=== PATIENT | male | born 1995 | race Hispanic/Latino ===

== ENCOUNTER 2025-03-18 11:05 | Emergency (ER) | payer OTHER ==
[~2025-03-18] VITALS: Ht 177.8 cm; Wt 81.4 kg
[2025-03-18] MEDS ORDERED: SUBOXONE 8 MG-1 EAC1 SL (11:25)
[2025-03-18] MEDS ORDERED: SODIUM CHLORIDE 0.9% 1,000 ML IV PRN (11:30)
[2025-03-18 11:52] LABS: BLOOD/HGB, URINE NEGATIVE (Negative); KETONE, URINE TRACE (Negative); LEUK ESTERASE, URINE NEGATIVE (negative); NITRITE, URINE NEGATIVE (negative)
[2025-03-18 11:59] LABS: BASOPHILS 0.2 % (0.2-1.2); EOSINOPHILS 0.6 % (0.8-7.0); LYMPHOCYTES 11.7 % (21.8-53.1); MCH 27.7 PG (25.7-32.2); MCHC 33.8 g/dL (32.3-36.5); MCV 82.1 fL (79.0-92.2); MONOCYTES 4.8 % (5.3-12.2); NEUTROPHILS 82.4 % (34.0-67.9); RBC 5.70 M/uL (4.63-6.08)
[2025-03-18 12:15] LABS: ALT (SGPT) 29.0 U/L (14-59); AST (SGOT) 37.0 U/L (15-37); GLOMERULAR FILTRATION RATE,EST 76.0 mL/min (>60); PROTEIN, TOTAL 8.3 g/dL (6.4-8.2); UREA NITROGEN 15.0 mg/dL (7-18)
[2025-03-18 12:44] LABS: CORONAVIRUS COVID-19 AG NEGATIVE (NEGATIVE)
[2025-03-18] MEDS ORDERED: ONDANSETRON ODT4 MG PO (15:03)
[2025-03-18 15:05] VITALS: BP 98/63
== END 2025-03-18 15:10 | disposition home or self-care (01) ==
LOC: ED 11:05
PROVIDERS: Emergency Medicine
DX: A08.4 Viral intestinal infection, unspecified (principal); D72.829 Elevated white blood cell count, unspecified; Z88.0 Allergy status to penicillin; Z79.899 Other long term (current) drug therapy
CPT/HCPCS: 36415; 74177; 80053; 81003; 83735; 85025; 96361; 96374; 99284-25; J2405; J7030